=== PATIENT | male | born 2000 | race Caucasian/White ===

== ENCOUNTER 2023-01-27 11:39 | Emergency (ER) | payer MEDICAID, SELFPAY ==
[2023-01-27 11:40] VITALS: BP 128/78; PULSE 78; RESP 16; TEMP 36.6; O2SAT 98; BMI 32.6
--- NOTE | 2023-01-27 11:51 | EDS_ITS ---
HPI <SHAINA Larose - Last Filed: 01/27/23 13:47> History of Present Illness Chief Complaint: Eye Problem Narrative Narrative: Presenting today with pain in his right eye that he has had since last night. He states that he is not sure if something got into his eye but he remembers rubbing it a lot last night and woke up with significant photophobia and redness to his eye. He states his vision is intact. He denies a foreign body sensation in his eye. Patient does not wear contact lenses. PFSH <SHAINA Larose - Last Filed: 01/27/23 13:47> PFSH Allergy/AdvReac Type Severity Reaction Status Date / Time No Known Allergies Allergy Verified 01/27/23 11:39 Social History Smoking Status: Never smoker ROS <SHAINA Larose - Last Filed: 01/27/23 13:47> ROS ED Constitutional Constitutional ED: Denies chills, fever(s) or sweats Eyes Eyes: Reports irritation and photophobia; Denies blurry vision, diplopia or loss of vision Cardiovascular Cardiovascular: Denies chest pain Respiratory/Chest Respiratory/Chest: Denies cough or dyspnea Gastrointestinal Gastrointestinal: Denies abdominal pain, nausea or vomiting Musculoskeletal Musculoskeletal: Denies arthralgias or myalgias Integumentary Denies abscess, Abrasions or rash Neurologic Neurologic: Denies weakness Psychiatric Psychiatric: Denies anxiety, depression, suicidal ideation or suicidal thoughts EXAM <SHAINA Larose - Last Filed: 01/27/23 13:47> Physical Exam Const Vital Signs: 01/27/23 11:40 Temperature 97.8 F Temperature Source Temporal Pulse Rate 78 Respiratory Rate 16 Blood Pressure 128/78 H Blood Pressure Mean 94 Pulse Ox 98 Oxygen Delivery Method Room Air Positive well nourished, well developed and no apparent distress General Appearance ED: well developed HEENT Reports normocephalic and head/scalp atraumatic Mouth ED: Yes moist mucous membranes normal Eyes PERRL and EOMs intact bilaterally Eyes Narrative: Corneal injection right side, no periorbital swelling, watery discharge right side. Neck full ROM and supple Chest Wall inspection of chest normal Resp normal respiratory effort and clear to auscultation bilaterally Cardio regular rate and regular rhythm GI soft to palpation, non-tender, non-distended and no masses Back/Spine normal ROM and normal to inspection Extremity normal to inspection and full ROM Neuro oriented x3, CN's II-XII intact bilaterally, moves all extremities, no focal motor deficits and no sensory deficits noted Sensorium / Orientation: awake and alert Psych mental status grossly normal and thought process normal Skin no rashes or lesions noted and no wounds [facility] <SHAINA Larose - Last Filed: 01/27/23 13:47> [facility] Narrative Medical decision making narrative: Patient presenting today with right-sided eye pain with watery discharge. I have considered acute angle glaucoma, corneal ulcer, corneal abrasion, conjunctivitis. Slit-lamp examination was performed and there is an area of inflammation and whiteness to the inferior lateral aspect of the cornea on the right, there is no visible corneal ulcer. Dr. 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 He would like to see him in the office today, patient has been given referral to see him today and will be discharged home in stable condition. Patient is comfortable with plan. <Dr. Gabriel Prince MD - Last Filed: 01/27/23 13:41> [facility] Treatment and Re-Evaluation Narrative: I have personally performed a face to face assessment of the patient and have reviewed the DAVID Note. I performed a substantive portion of the visit including all aspects of the following. My rushing findings include: History: Patient states he had irritation of his right eye starting last evening. He did not do anything to it. He has no known exposures to chemicals, welding, bright lights, grinding or cutting. No trauma at all. He has been rubbing it a lot more today. He states it is somewhat irritating and the light bothers him and he has drainage. Most of the drainage is clear. He denies any change in his vision though. He has no history of prior ocular surgery or injury. Exam: No external swelling other than minimal prominence of the lower lid. There is some mild increased clear discharge. There is an area of inflammation and whiteness to the inferior lateral aspect of the cornea on the right. This is approximately 7 PM to 8 PM on the clock. It spares just a little ridge of the periphery. There is a small amount of dye uptake in the middle. But I do not see an actual ulceration into the cornea. Range of motion is normal. Pupillary response is normal. There is no hyphema or hypopyon. Medical Decision Making: This patient does not wear contact lenses. This does not have the typical appearance of a corneal ulcer. I was able to speak with Dr. Llanos. He felt that this is likely a staph marginal keratitis. However, his since it is going into the weekend he would prefer to see him now to make sure that we are doing the appropriate treatment for this patient. For that reason we will discharge him from here but he is going directly over to ophthalmology office. 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 Disposition Disposition: Home, Self Care Discharge Date/Time: 01/27/23 13:39
[2023-01-27] MEDS: Fluorescein 1 MG STRIP 1 STRIP RIGHT EYE (12:30)
[2023-01-27] MEDS: Tetracaine 0.5% Ophthalmic Bottle 1 DRP RIGHT EYE (12:30)
== END 2023-01-27 13:39 | disposition home or self-care (01) ==
PROVIDERS: Emergency Provider Emergency Medicine; Visit Provider Emergency Medicine
DX: H16.8 Other keratitis (principal); B95.8 Unspecified staphylococcus as the cause of diseases classified elsewhere
CPT/HCPCS: 99282

== ENCOUNTER 2023-12-04 22:04 | Emergency (ER) | payer SELFPAY ==
[2023-12-04 22:06] VITALS: BP 132/88; PULSE 87; RESP 18; TEMP 36.9; O2SAT 97; BMI 33.1
--- NOTE | 2023-12-04 23:00 | RAD_ITS ---
STUDY: X-RAY - LEFT HAND REASON FOR EXAM: Male, 23 years old. pain, swelling TECHNIQUE: 3 view(s) of the hand. COMPARISON: None. FINDINGS: Normal radiocarpal articulation. Normal distal radioulnar joint. Normal visualized carpal bones. Normal carpal articulations Normal carpometacarpal articulation of the thumb. Normal second through fifth carpometacarpal joints. Normal metacarpi. Normal metacarpophalangeal joint of the thumb. Normal interphalangeal joint of the thumb. Normal proximal and distal phalanges of the thumb. Normal metacarpophalangeal joints of the second through fifth fingers. Normal proximal and distal interphalangeal joints of the second through fifth fingers. Fracture fifth proximal phalanx with dorsal angulation. The soft tissue structures are unremarkable. RAD/Hand Min 3 Views IMPRESSION: Fracture fifth proximal phalanx Electronically Signed: Ivan Tran MD at 23:25 EST ,
--- NOTE | 2023-12-05 00:36 | EX.ED.UPPERE ---
HPI History of Present Illness HPI Narrative: Patient presents with left hand injury that occurred today. Patient states he fell off of his scooter and landed on his left hand. Patient thinks he hyperflexed his finger. Patient denies any paresthesias or weakness. Patient states his pain is worse with movement. Patient denies any head injury or loss of consciousness. Patient denies any other injuries. Patient is right-hand dominant. Chief Complaint: Upper Extremity Injury Informant: patient Occured/Mechanism Mechanism/Context: Yes fall Onset/Context/Timing Onset: Today Context: Sudden Onset Timing: Continuous Quality of Pain: Sharp Location: Left fifth finger Worsened by: Movement Relieved by: Rest Associated Symptoms Associated Symptoms: Negative for Parasthesia, Weakness or Loss of Funtion PFSH PFSH Medical History no medical history no medical history Home Medications NK 12/04/23 [History Last Taken Unknown] Allergy/AdvReac Type Severity Reaction Status Date / Time No Known Allergies Allergy Verified 12/04/23 22:05 Surgical History no surgical history no surgical history Social History Smoking Status: Never smoker ROS ROS ED Constitutional Constitutional ED: Denies chills or fever(s) Eyes Eyes: Denies blurry vision or change in vision ENT ENT ED: Denies rhinorrhea or sore throat Cardiovascular Cardiovascular: Denies chest pain or palpitations Respiratory/Chest Respiratory/Chest: Denies cough or dyspnea Gastrointestinal Gastrointestinal: Denies nausea or vomiting Genitourinary Genitourinary ED: Denies dysuria or hematuria Musculoskeletal Musculoskeletal: Denies back pain or neck pain Integumentary Denies abscess or rash Neurologic Neurologic: Denies headache(s) or weakness Allergic/Immunologic Allergic/Immunologic ED: Denies mouth swelling or urticaria EXAM Physical Exam Const Vital Signs: 12/04/23 22:06 Temperature 98.4 F Temperature Source Temporal Pulse Rate 87 Respiratory Rate 18 Blood Pressure 132/88 H Blood Pressure Mean 102 Pulse Ox 97 Oxygen Delivery Method Room Air Positive well nourished, well developed and obese General Appearance ED: well developed and NAD Nutritional Appearance: obese HEENT Reports moist mucous membranes Neck full ROM and supple Extremity Extremity Narrative: There is tenderness, edema, and ecchymosis over the left fifth finger. Range of motion was limited in all motions of the MP, PIP, and DIP joints secondary to pain. There is a rotational deformity noted. Sensation was intact to light touch in all digits. Capillary refill was less than 2 seconds in all digits. Neuro oriented x3, CN's II-XII intact bilaterally, moves all extremities, no focal motor deficits and no sensory deficits noted Sensorium / Orientation: alert Motor Exam: strength 5/5 throughout Psych mental status grossly normal MDM MDM MDM Narrative Medical decision making narrative: Differential diagnosis includes fracture and contusion. X-rays of the left hand will be obtained to assess for fracture. Radiography Diagnostic Testing: Clinical Impression(s) from Imaging Studies Hand X-Ray 12/04/23 23:00 IMPRESSION: Fracture fifth proximal phalanx Electronically Signed: Ivan Tran MD at 23:25 EST , X-rays of the left hand were obtained. There are 3 views. On my independent interpretation, there is a fracture of the fifth proximal phalanx at the base. There is some angulation of the distal fragment dorsally. There is some soft tissue swelling noted. Radiologist also interpreted the x-ray and agrees. Treatment and Re-Evaluation Narrative: Patient was advised of his findings. Patient is agreeable to digital block and attempted reduction. The left fifth finger was anesthetized with 1% lidocaine via digital block. The finger was reduced. The finger was placed in aluminum foam splint. The fifth and fourth fingers were ambar taped together. Patient was instructed to ice and elevate the left hand. Patient was instructed to follow-up with his primary care physician in 5 to 7 days. Patient was also given a referral for orthopedics. Patient understood and was agreeable with the plan. All questions were answered. Procedures Upper Extremity Splints Upper Extremity Splint: Alumifoam and - (Left fifth finger) Splint Fabrication: Fabricated Location: Left Discharge Plan Triage Chief Complaint: Upper Extremity Injury ED Provider: Ananth Smith Dx/Rx/DC Orders Clinical Impression: Fracture of proximal phalanx of finger of left hand, Fall Instructions: ED Fracture, Finger, Closed Prescriptions: No Action NK Primary Care Provider: Care Physician,No Primary Referrals: Will Gutierrez DO [Med Staff - Active Staff] - 3-5 Days Care Physician,No Primary [Primary Care Provider] - Disposition Disposition: Home, Self Care
[2023-12-05 01:02] VITALS: BP 135/79; PULSE 81; RESP 16; O2SAT 97
== END 2023-12-05 01:03 | disposition home or self-care (01) ==
PROVIDERS: Emergency Provider Emergency Medicine; Visit Provider Emergency Medicine
DX: S62.617A Displaced fracture of proximal phalanx of left little finger, initial encounter for closed fracture (principal); V00.141A Fall from scooter (nonmotorized), initial encounter; E66.9 Obesity, unspecified
CPT/HCPCS: 29130; 73130; 99283